=== PATIENT | male | born 1960 | race Caucasian/White ===

== ENCOUNTER → 2021-01-25 08:37 | Outpatient (REF) | payer OTHER, SELFPAY | LOC: ANHLAB 08:37 | PROVIDERS: PCP Internal Medicine; Visit Provider Nurse Practitioner | DX: L72.11 Pilar cyst (principal) | CPT/HCPCS: 88304 ==

== ENCOUNTER 2023-07-09 03:35 | Day surgery (SDC) | payer OTHER, SELFPAY ==
[2023-06-20 11:31] VITALS: BMI 20.8
[2023-07-09 10:21] VITALS: BP 109/73; PULSE 60; RESP 18; TEMP 36.2; O2SAT 100
[2023-07-09] MEDS: LACTATED RINGERS 1,000 ML 150 ML IV CONT (10:28)
--- NOTE | 2023-07-09 10:59 | WPDANESEPPF ---
Anes - Initial Pre Proc Eval Procedure: Operation Date: 07/09/23 11:30 Proposed Procedures p Screening Colonoscopy - Everardo Mccollum MD Date/Time: 07/09/23 10:59 Surgeon: Everardo Mccollum MD Pre Op Diagnosis: neoplasm screening Patient Data Age: 63 Gender: M Height: 1.78 m Weight: 64.3 kg Last Vital Signs Temp 97.2 F L 07/09/23 10:21 Pulse 60 07/09/23 10:21 Resp 18 07/09/23 10:21 BP 109/73 07/09/23 10:21 Pulse Ox 100 07/09/23 10:21 O2 Del Method Room Air 07/09/23 10:21 Allergies Allergy/AdvReac Type Severity Reaction Status Date / Time No Known Allergies Allergy Unknown Verified 07/09/23 10:20 Home Medications Medication Instructions Recorded Confirmed Type No Home Medications 11/29/20 06/20/23 History Patient hx anesthesia problems: none Family hx anesthesia problems: none Results Review: All pre-operative results and documents have been reviewed as part of the pre-operative evaluation. [facility] Past Medical History Medical History History of Mohs micrographic surgery for skin cancer History of skin cancer Social History Social History Smoking status: Never smoker Second hand tobacco smoke exposure: No Alcohol intake: never Substance use: never Substance use type: does not use Living arrangements: with family Spiritual care concerns: No Anes - Eval Final PreProcedure Day of Procedure 07/09/23 10:59 Patient weight: normal Heart: regular rate and rhythm Lungs: clear to auscultation Airway: Mallampati scale class II Neurological: alert and oriented Last oral intake: >/= 8 hours ASA classification: I Emergent: no Anesthetic plan: proceed Anesthesia type and monitoring: general GIVS and standard monitoring Results Review: All pre-operative results and documents have been reviewed as part of the pre-operative evaluation. Informed Consent: The patient's anesthetic plan and its attendant risks and benefits were discussed with the patient/family/POA. Questions were solicited and answers provided to the satisfaction of the patient/family/POA.
--- NOTE | 2023-07-09 11:01 | PM.HPGS ---
History of Present Illness History of Present Illness Consent: Risks, benefits, and alternatives have been discussed and questions answered. Patient agrees to proceed with procedure. Chief complaint: neoplasm screening Narrative: Zaki Leavitt is a 63 year old male with colonoscopy 12 years ago Review of Systems Review of Systems: All systems reviewed & are unremarkable except as noted in HPI and below PMFSH Past Medical History Medical History (Updated 07/09/23 @ 11:02 by Everardo Mccollum MD) Colon cancer screening History of Mohs micrographic surgery for skin cancer History of skin cancer Social History Social History Smoking status: Never smoker Second hand tobacco smoke exposure: No Alcohol intake: never Substance use: never Substance use type: does not use Living arrangements: with family Spiritual care concerns: No Meds Home Medications and Allergies Home Medications Medication Instructions Recorded Confirmed Type No Home Medications 11/29/20 06/20/23 History Allergies Allergy/AdvReac Type Severity Reaction Status Date / Time No Known Allergies Allergy Unknown Verified 07/09/23 10:20 Vital Signs Vital Signs - 24 hr 07/09/23 10:21 Temperature 97.2 F L Pulse Rate 60 Respiratory Rate 18 Blood Pressure 109/73 Pulse Oximetry 100 Oxygen Delivery Room Air Exam Const: General: comfortable and no acute distress HENMT: Face/Nose/Sinus: Normal nares present Eyes: General: appearance normal, both eyes and all related structures Neck: Neck: no JVD Resp: Auscultation: clear to auscultation bilaterally Cardio: Rate: regular rate Rhythm: regular rhythm GI: Inspection: non-distended GI Palp: Yes Soft to palpation Skin: General skin exam: normal color Neuro: General: gait normal Speech: normal speech Extrem: General: normal to inspection Psych: Mental Status: mental status grossly normal Assessment and Plan Assessment and plan (1) Colon cancer screening: Code(s): Z12.11 - Encounter for screening for malignant neoplasm of colon Status: Acute Assessment and Plan: colonoscopy
[2023-07-09 11:26] VITALS: BP 93/59; PULSE 60; RESP 22; O2SAT 100
[2023-07-09 11:36] VITALS: BP 89/56; PULSE 60; RESP 18; O2SAT 100
[2023-07-09 11:41] VITALS: BP 108/70; PULSE 62; RESP 18; O2SAT 100
== END 2023-07-09 11:52 | disposition home or self-care (01) ==
PROVIDERS: PCP Internal Medicine; Visit Provider Internal Medicine Gastroenterology
PROC: 0DJD8ZZ Inspection of Lower Intestinal Tract, Via Natural or Artificial Opening Endoscopic (ICD-10-PCS; CPT 45378; principal; 2023-07-09 11:30)
DX: Z12.11 Encounter for screening for malignant neoplasm of colon (principal); K63.5 Polyp of colon; K64.8 Other hemorrhoids; Z85.828 Personal history of other malignant neoplasm of skin
CPT/HCPCS: 45385; 88305; J2704; J7120